=== PATIENT | male | born 1955 | race Two or more races ===

== ENCOUNTER 2024-04-29 09:30 | Day surgery (SDC) | payer MEDICARE, SELFPAY ==
--- NOTE | 2024-04-28 10:10 | EKG_ITS ---
[facility] Test Date: 2024-04-28 Pat Name: ADVID FORBES Department: Room: - Gender: Male Delicatessen Manager: LINDA : 1955 Requested By: Gene Yang Order Number: [id number] Reading MD: Gene Yang Measurements Intervals Weikert Rate: 59 P: 38 WA: 221 QRS: 24 QRSD: 92 T: 36 QT: 394 QTc: 392 Interpretive Statements SINUS BRADYCARDIA WITH FIRST DEGREE AV BLOCK No previous ECG available for comparison /[id number]/S0/[id number]
[2024-04-28 10:15] VITALS: BMI 28.4
[2024-04-28 11:59] LABS: Basophils % (Auto) 0 % (0-2.5); Eosinophils # (Auto) 0.1 Thou/mm3 (0.0-0.5); Eosinophils % (Auto) 1 % (0-10); Hematocrit 44.7 % (41.0-53.0); Immature Granulocytes % (Auto) 0 % (0-0); Immature Granulocytes Auto 0.01 Thou/mm3 (0.00-0.00); Lymphocytes # (Auto) 2.4 Thou/mm3 (1.0-4.8); Lymphocytes % (Auto) 35 % (10-50); Mean Corpuscular HGB Conc 33.6 g/dl (31.0-37.0); Mean Corpuscular Hemoglobin 31.4 pg (25.0-35.0); Mean Corpuscular Volume 94 fL (80-100); Monocytes # (Auto) 0.6 Thou/mm3 (0.0-0.8); Monocytes % (Auto) 9 % (0-12); Neutrophils # (Auto) 3.8 Thou/mm3 (1.8-7.7); Neutrophils % (Auto) 55 % (37-80); Nucleated Red Blood Cell % 0 /100 WBC (0); Platelet Count 265 Thou/mm3 (140-440); RDW Standard Deviation 44.9 fL (35.1-43.9); Red Blood Count 4.77 Miln/mm3 (4.50-5.90); White Blood Count 6.9 Thou/mm3 (3.8-10.6)
[2024-04-28 12:08] LABS: Partial Thromboplastin Time 25.7 Seconds (22.0-36.0); Prothrombin Time 10.6 Seconds (9.0-12.2)
[2024-04-28 12:10] LABS: Alanine Aminotransferase 62 U/L (10-49); Albumin, Serum 4.9 gm/dL (3.4-4.8); Albumin/Globulin Ratio 1.8 (1.2-2.2); Alkaline Phosphatase 124 U/L (46-116); Anion Gap 8 (7-16); Aspartate Amino Transferase 41 U/L (0-34); BUN/Creatinine Ratio 12 Ratio (12-20); Bilirubin,Total 0.6 mg/dL (0.3-1.2); Blood Urea Nitrogen 13 mg/dL (9-23); Calcium 9.7 mg/dL (8.3-10.6); Calcium (Corrected) 9.7 mg/dL (8.5-10.1); Carbon Dioxide 27.4 mMol/L (20.0-31.0); Chloride 104 mMol/L (98-107); Creatinine (Component) 1.1 mg/dL (0.6-1.3); Estimated Creatinine Clearance 74.6 mL/min (>60); Globulin 2.7 gm/dL (2.3-3.5); Glucose 155 mg/dL (74-106); Osmolality,Calculated 280 (275-295); Potassium 4.4 mMol/L (3.4-5.1); Sodium 139 mMol/L (136-145); Total Protein 7.6 gm/dL (5.7-8.2); eGFR > 60 See Note
[2024-04-29] VITALS (8 sets, daily range): BP systolic 145–178; BP diastolic 79–92; PULSE 57–86; RESP 12–19; TEMP 36.3–37.1; O2SAT 97–100; BMI 27.7
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
--- NOTE | 2024-04-29 13:00 | SUR.PHASEI ---
pt arrived to PACU via gurney awake, alert, able to follow commands, breathing unlabored, dressing to right knee clean, dry, and intact, report from Maicol CASTRO and Dr Veras
--- NOTE | 2024-04-29 13:25 | ESOP_ITS ---
Date of Procedure 04/29/24 Pre Op Diagnosis #1 torn medial meniscus right knee joint 2. Torn lateral meniscus 3 degenerative joint disease changes 4 synovitis with medial plica Post Op Diagnosis Same Procedure 1. 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 Almost all the surface areas of the patella had no cartilage. The medial compartment showed significant area denuded of cartilage. The medial femoral co ndyle showed the same thing. Grade III chondromalacia was present on the lateral femoral condyle and lateral tibial plateau significant send tissue inflammation was present. Procedure Description The patient was given general endotracheal anesthesia. Once satisfactory anesthesia was achieved, tourniquet was placed on right upper thigh. Following that the part was thoroughly prepped and draped. After using Esmarch the tourniquet pressure was raised to 350 mmHg. A skin incision was made proximal to lateral tibial plateau and arthroscope was introduced in the usual fashion. Another a skin incision was made in suprapatellar pouch area and outlet was established. The findings were noted as below. In suprapatellar pouch area significant synovial tissue inflammation was present. Medial plica was present as well. The undersurface of patella showed grade 4 chondromalacia. The anterior femoral condyle showed grade 4 chondromalacia. Almost all areas of patella was denuded of cartilage. Soft tissue impingement was present. The patellar tracking was checked and found to be good. The medial compartment showed grade 4 chondromalacia for medial tibial plateau and medial femoral condyle. More than half of area of the medial tibial plateau was completely denuded of cartilage. The medial meniscus showed degeneration and tear of the posterior horn and body.. Another skin incision was made proximal to medial tibial plateau and a probe was introduced and findings were confirmed. The anterior cruciate ligament was intact. The anterior drawer test was performed and found to be good. With the help of probe the integrity was tested and found to be good. The lateral compartment showed grade III chondromalacia of lateral femoral condyle and tibial plateau. Lateral meniscus showed degeneration of the body and anterior horn. A basket was introduced and torn part of the medial meniscus was excised. A shaver was introduced and shaving of the medial meniscus was performed. Soft tissue impingement was shaved off. Chondroplasty of the medial femoral condyle and medial tibial plateau was performed. The shaving of the body and anterior horn of lateral meniscus was done. The chondroplasty of the lateral femoral condyle and tibial plateau was performed. The chondroplasty of the patella and and anterior femoral condyle was performed. The soft tissue impingement was shaved off. The medial shelf was excised. A partial synovectomy including excision of plica was performed. Copious amount of irrigation was used to irrigate the knee joint. All the debris were removed. 3-0 Prolene was used to close the wound. About 20 mL of quarter percent Marcaine along with 10 mg of Duramorph was injected. Patient tolerated procedure well. Estimated blood loss was about 5 mL. Prognosis in this case is very much guarded. Because of significant chondromalacia in all the compartment of the knee joint patient may continue having short and/or long-term pain. In that case patient may be a candidate for total knee replacement. Patient was taken to the recovery room in good condition. Anesthesia GETA Pathology / specimen None Estimated Blood Loss 1 Surgeon Gene Katz MD Surgical Staff Operation Date: 04/29/24 12:00 Case Staff Anesthesiologist: Misael Veras
--- NOTE | 2024-04-29 13:25 | SUR.PHASEI ---
pt tolerating oral fluids without difficulty swallowing or n/v
--- NOTE | 2024-04-29 13:40 | SUR.PHASEII ---
report to Alfonso CASTRO
--- NOTE | 2024-04-29 14:23 | SUR.PHASEII ---
pt awake and alert, breathing unlabored on room air. v/s stable. pt dressing to right lower extremity cdi. pt able to ambulate to wheelchair with steady gait. d/c instructions given with daughter Priscilla in room using language interpreter Lilia franklin, all questions answered. pt d/c via wheelchair with all belongings.
== END 2024-04-29 14:23 | disposition home or self-care (01) ==
PROVIDERS: Anesthesiology; PCP Family Medicine; Referring Provider Orthopaedic Surgery; Visit Provider Orthopaedic Surgery
PROC: (CPT 29870; principal; 2024-04-29 11:45)
DX: S83.241A Other tear of medial meniscus, current injury, right knee, initial encounter (principal); M65.90 Unspecified synovitis and tenosynovitis, unspecified site; M19.90 Unspecified osteoarthritis, unspecified site; Z01.810 Encounter for preprocedural cardiovascular examination; S83.281A Other tear of lateral meniscus, current injury, right knee, initial encounter
CPT/HCPCS: 29875; 29880; 36415; 80053; 85025; 85610; 85730; 93005; A4217; A4649; J1100; J2274; J2704; J2765; J3010; J3490; J0665; J2270

== ENCOUNTER 2024-07-11 11:00 | Outpatient (RCR) | payer MEDICARE, SELFPAY ==
--- NOTE | 2024-07-06 10:35 | PTNOTE_ITS ---
PT OP Initial Eval Patient Information Outpatient Physical Therapy Treatment Date: 07/06/24 Visit Reasons: Rt knee arthroscopy Medical Diagnosis: Z98.890 Treatment Dx #1: R knee pain Treatment Dx #2: Dec R knee ROM Start of Care: 07/06/24 Date of Onset: 04/29/25 Smoking Status Smoking Status: Never smoker Initial Assessment Subjective: Pt is 68 yr old swedish speaking male s/p R knee A/S presents ambulating without assistive device and reports pain with WB and walking for more than about 10 mins, bending and extending the knee fully. PLOF: pt was ambulating required distances not limited by R knee PMH: pre-DM, OA B knees Pt goal: to move the knee and walk without pain Objective: R knee AROM: ? Flexion: 120 deg ? Extension: -5 deg ? SLR: 55 deg ? Strength: R quads 4-/5 limited by patella compression pain, hamstrings 4/5 ? Antalgic gait pattern with decreased stance time on R Assessment: Pt presentation consistent with post op R knee A/S with decreased ROM, ? strength and WB tolerance. Pt ambulates with decreased WB on R. Pt has ? pain at first resistance into knee flexion that limits end-range ? assessment and PROM. Pt has ? good rehab potential with attainable functional improvement. Short Term and Custodial Goals 1. Independent with HEP ? 2. Improved knee extension to full ? 3. Improved quad and hamstring strength to 4+/5 ? 4. Improved ambulatory tolerance to community distances 30 mins with symmetrical ? gait pattern and <=2/10 pain Treatment Plan 90 day POC ? 1. Manual therapy ? 2. Therex ? 3. Modalities as indicated, moist heat, ice, estim Frequency and Duration: 2x a week for 16 visits. Pt has 1 visit authorized then will need more Certification Dates: 07/06/24 to 10/04/24 Procedure Charges OP PT Eval Mod Complex 30 minutes: Yes
--- NOTE | 2024-07-11 11:34 | PT.ODAYNRPT ---
PT Outpatient Daily Note OP Daily Note Outpatient Physical Therapy Treatment Date: 07/11/24 Visit Reasons: Rt knee arthroscopy Subjective: Doing HEP with R knee swelling and soreness and he points to the medial part Objective: See F/S for therex Assessment: Pt would benefit from continued therapy to meet goals. Only one Rx visit authorized. Plan: Pt will contact provider for more authorized visits Length of Time (minutes) of Treatment: 30 Minutes Procedure Charges Therapeutic Exercise 30 minutes: Yes
== END 2024-07-15 23:59 | disposition home or self-care (01) ==
LOC: CPTX 11:00
PROVIDERS: PCP Orthopaedic Surgery; Referring Provider Orthopaedic Surgery; Visit Provider Orthopaedic Surgery
DX: M25.561 Pain in right knee (principal); Z98.890 Other specified postprocedural states
CPT/HCPCS: 97110; 97162

== ENCOUNTER 2024-09-12 09:38 | Outpatient (RCR) | payer OTHER, SELFPAY ==
--- NOTE | 2024-09-12 10:12 | PTNOTE_ITS ---
PT OP Initial Eval Patient Information Outpatient Physical Therapy Treatment Date: 09/12/24 Visit Reasons: RIGHT KNEE SURGERY Medical Diagnosis: Z98.890 Treatment Dx #1: R knee pain Date of Onset: 04/29/24 Smoking Status Smoking Status: Never smoker Initial Assessment Subjective: Pt is 68 yr old yoruba speaking male s/p R knee A/S presents ambulating without assistive device and reports pain of lateral knee and walking for more than abo ut 15 mins . PLOF: pt was ambulating required distances not limited by R knee PMH: pre-DM, OA B knees Pt goal: to move the knee and walk without pain Objective: R knee AROM: ? Flexion: 120 deg ? Extension: -3 deg ? SLR: 65 deg ? Strength: R quads 4/5, hamstrings 4/5 ? Gait pattern: slightly decreased stance time on R Assessment: Pt presentation consistent with post op R knee A/S with good ROM, ? decreased strength and WB tolerance. Pt ambulates with slightly decreased WB on R. Pt has ? good rehab potential with attainable functional improvement. Short Term and Resume Specialist Goals 1. Independent with HEP ? 2. Improved knee extension to full ? 3. Improved quad and hamstring strength to 4+/5 ? 4. Improved ambulatory tolerance to community distances 30 mins with symmetrical ? gait pattern and <=2/10 pain Treatment Plan 90 day POC ? 1. Manual therapy ? 2. Therex ? 3. Modalities as indicated, moist heat, ice, estim Frequency and Duration: 2x a week for 12 visits plus the eval Certification Dates: 09/12/24 to 12/11/24 Procedure Charges OP PT Eval Mod Complex 30 minutes: Yes
== END 2024-09-14 23:59 | disposition home or self-care (01) ==
LOC: CPTX 09:38
PROVIDERS: PCP Orthopaedic Surgery; Referring Provider Orthopaedic Surgery; Visit Provider Orthopaedic Surgery
DX: M25.561 Pain in right knee (principal); Z98.890 Other specified postprocedural states
CPT/HCPCS: 97162

== ENCOUNTER 2024-10-13 09:00 | Outpatient (RCR) | payer OTHER, SELFPAY ==
--- NOTE | 2024-09-15 09:08 | PT.ODAYNRPT ---
PT Outpatient Daily Note OP Daily Note Outpatient Physical Therapy Treatment Date: 09/15/24 Visit Reasons: RT knee surgrey Subjective: Same as time of eval Objective: See F/S for therex P x5' Assessment: Improved PROM into extension to almost full today Plan: Continue per POC Length of Time (minutes) of Treatment: 30 Minutes Procedure Charges Therapeutic Exercise 30 minutes: Yes
--- NOTE | 2024-09-20 08:35 | PT.ODAYNRPT ---
PT Outpatient Daily Note OP Daily Note Outpatient Physical Therapy Treatment Date: 09/20/24 Visit Reasons: RT knee surgrey Subjective: Overall better Objective: See F/S for therex P x5' Assessment: Improved PROM into extension to full today after low load prolonged stretching Plan: Continue per POC Length of Time (minutes) of Treatment: 30 Minutes Procedure Charges Therapeutic Exercise 30 minutes: Yes
--- NOTE | 2024-09-22 08:24 | PT.ODAYNRPT ---
PT Outpatient Daily Note OP Daily Note Outpatient Physical Therapy Treatment Date: 09/22/24 Visit Reasons: RT knee surgrey Subjective: Overall better Objective: See F/S for therex Assessment: Improved PROM into extension to full today after low load prolonged stretching Plan: Continue per POC Length of Time (minutes) of Treatment: 30 Minutes Procedure Charges Therapeutic Exercise 30 minutes: Yes
--- NOTE | 2024-09-27 08:21 | PT.ODAYNRPT ---
PT Outpatient Daily Note OP Daily Note Outpatient Physical Therapy Treatment Date: 09/27/24 Visit Reasons: RT knee surgrey Subjective: Overall walking better Objective: See F/S for therex Assessment: Improved PROM into extension to full today after low load prolonged stretching Plan: Continue per POC Length of Time (minutes) of Treatment: 30 Minutes Procedure Charges Therapeutic Exercise 30 minutes: Yes
--- NOTE | 2024-09-29 18:16 | PT.ODAYNRPT ---
PT Outpatient Daily Note OP Daily Note Outpatient Physical Therapy Treatment Date: 09/29/24 Visit Reasons: RT knee surgrey Subjective: Overall walking better Objective: See F/S for therex Assessment: Improved PROM into extension to full today after low load prolonged stretching Plan: Continue per POC Length of Time (minutes) of Treatment: 30 Minutes Procedure Charges Therapeutic Exercise 30 minutes: Yes
--- NOTE | 2024-10-04 08:53 | PTNOTE_ITS ---
PT Outpatient Daily Note OP Daily Note Outpatient Physical Therapy Treatment Date: 10/04/24 Visit Reasons: RT knee surgrey Subjective: Pt reports knee is doing better. Objective: Please see flow sheet for ther ex list. Assessment: Pt able to perform step up and down exercise with no TOGGLE PRESS OPERATOR. Plan: Continue with POC.
--- NOTE | 2024-10-11 10:03 | PT.ODAYNRPT ---
PT Outpatient Daily Note OP Daily Note Outpatient Physical Therapy Treatment Date: 10/11/24 Visit Reasons: RT knee surgrey Subjective: Overall walking better Objective: See F/S for therex Assessment: Improved PROM into extension to full today and he is ambulating with symmetrical pattern. Plan: Continue per POC Length of Time (minutes) of Treatment: 30 Minutes Procedure Charges Therapeutic Exercise 30 minutes: Yes
--- NOTE | 2024-10-13 09:35 | PT.ODAYNRPT ---
PT Outpatient Daily Note OP Daily Note Outpatient Physical Therapy Treatment Date: 10/13/24 Visit Reasons: RT knee surgrey Subjective: Pt reports R knee is progressing. Objective: Please see flow sheet for ther ex list. Assessment: Progressed lateral stepping exercise adding thera band, pt tolerated well. Plan: Continue with pOC. Length of Time (minutes) of Treatment: 30 Minutes Procedure Charges Therapeutic Exercise 30 minutes: Yes
== END 2024-10-15 23:59 | disposition home or self-care (01) ==
LOC: CPTX 09:00
PROVIDERS: PCP Orthopaedic Surgery; Referring Provider Orthopaedic Surgery; Visit Provider Orthopaedic Surgery
DX: M25.561 Pain in right knee (principal); Z98.890 Other specified postprocedural states
CPT/HCPCS: 97110

== ENCOUNTER 2024-11-01 08:30 | Outpatient (RCR) | payer OTHER, SELFPAY ==
--- NOTE | 2024-10-18 18:10 | PT.ODAYNRPT ---
PT Outpatient Daily Note OP Daily Note Outpatient Physical Therapy Treatment Date: 10/18/24 Visit Reasons: RIGHT KNEE SURGERY Subjective: Overall walking better. No pain with step ups in R knee. Objective: See F/S for therex Assessment: Improved PROM into extension to full today and he is ambulating with symmetrical pattern. Plan: Continue per POC Length of Time (minutes) of Treatment: 30 Minutes Procedure Charges Therapeutic Exercise 30 minutes: Yes
--- NOTE | 2024-10-25 09:49 | PT.ODAYNRPT ---
PT Outpatient Daily Note OP Daily Note Outpatient Physical Therapy Treatment Date: 10/25/24 Visit Reasons: RIGHT KNEE SURGERY Subjective: Overall walking better. No pain with step ups in R knee. Objective: See F/S for therex Assessment: Improved PROM into extension to full today and he is ambulating with symmetrical pattern. Plan: Continue per POC Length of Time (minutes) of Treatment: 30 Minutes Procedure Charges Therapeutic Exercise 30 minutes: Yes
--- NOTE | 2024-10-27 08:58 | PT.ODAYNRPT ---
PT Outpatient Daily Note OP Daily Note Outpatient Physical Therapy Treatment Date: 10/27/24 Visit Reasons: RIGHT KNEE SURGERY Subjective: Pt reports R knee is doing better. Objective: Please see flow sheet for ther ex list. Assessment: Pt demonstrates excessive tibial translation during forward lunge exercise, corrects post verbal cues. Plan: Continue with POC. Length of Time (minutes) of Treatment: 30 Minutes Procedure Charges Therapeutic Exercise 30 minutes: Yes
--- NOTE | 2024-11-01 09:20 | PT.ODAYNRPT ---
PT Outpatient Daily Note OP Daily Note Outpatient Physical Therapy Treatment Date: 11/01/24 Visit Reasons: RIGHT KNEE SURGERY Subjective: Pt reports R knee still hurts at times, points to medail knee location of pain. Pt shared that he is going to follow up with his surgeon and they have discussed before the possibility of having a knee replacement. Objective: Please see flow sheet for ther ex list. AROM of R knee -3 deg. knee extension, knee flexion 130 deg Assessment: Pt ROM improved as indicated above. Pt continues to have medial knee pain with ADL's and about ~3 degrees of knee extension. At this time pt has completed 04/28 authorized visits and would like to continue working with PT to work toward meeeting all goals initiatlly set for PT. Plan: Continue with pOC. Length of Time (minutes) of Treatment: 30 Minutes RESEARCH DAIRY FARM SUPERVISOR Service Modifier Method I: Divide the number of min of care provided by the RESEARCH DAIRY FARM SUPERVISOR/BIOMASS POWER PLANT MANAGER by the total min of care provided then multiply by 100. If greater than 11 percent modifier is required. Method II: Divide the total time of care provided to patient by 10 (round to the nearest whole number) and add 1 min. to set the minimum time requirement. If treatment total was 60 min., then 10% of 6 min PT CQ modifier applied: CQ Modifier applied Procedure Charges Therapeutic Exercise 30 minutes: Yes
== END 2024-11-14 23:59 | disposition home or self-care (01) ==
LOC: CPTX 08:30
PROVIDERS: PCP Orthopaedic Surgery; Referring Provider Orthopaedic Surgery; Visit Provider Orthopaedic Surgery
DX: M25.561 Pain in right knee (principal); Z98.890 Other specified postprocedural states
CPT/HCPCS: 97110